=== PATIENT | male | born 1965 | race African-American/Black ===

== ENCOUNTER → 2017-08-20 12:34 | Outpatient (POV) | payer MEDICARE, SELFPAY ==
[2017-08-20 12:47] VITALS: BP 149/99; PULSE 74; RESP 20; TEMP 36.6; O2SAT 100
--- NOTE | 2017-08-20 12:55 | HMH.PMCON ---
Assessment and Plan (1) Degenerative joint disease (DJD) of lumbar spine Current visit: Yes Status: Chronic Qualifiers: Spinal osteoarthritis complication: with radiculopathy Qualified Code(s): M47.26 - Other spondylosis with radiculopathy, lumbar region Category: Medical Code(s): M47.816 - Spondylosis without myelopathy or radiculopathy, lumbar region (2) Postlaminectomy syndrome Current visit: Yes Status: Chronic Category: Medical Code(s): M96.1 - Postlaminectomy syndrome, not elsewhere classified - Assessment and plan all Dx Assessment and Plan for all problems:: The patient and I had a long discussion about therapies. Patient and I discussed that we would not be writing narcotic medications for him at this time. He is okay with this. We will start the patient on gabapentin 300 mg 1 tab p.o. 3 times daily. I encouraged him to start it at nighttime and slowly titrate as tolerated. We will also start the patient on Mobic 7.5 mg daily. I will give him tramadol 50 mg 1 tab p.o. 3 times daily as needed for pain. I will give him no refills on any of this. Patient is to sign a release of information to so that we can obtain his MRIs. I also gave the patient information on neuro stimulation and intrathecal therapies. Patient said he is open to try injective therapy again. We will discuss this at his next visit in 3 weeks. This note was dictated using voice recognition software and may contain errors or omissions HPI - Data of Consult Consult date: 08/20/17 Requesting Physician: Pamella Gracia APRN Primary Care Provider: Referral Provider, Family Provider: Internal Medicine - Consult Narrative Reason for consult: Back Pain History of present illness: Mr. Gupta is a 51 year old male who presents today for consultation in regards to his back and neck pain. Patient recently moved here from [place]. Patient was being seen by a neurosurgeon in [place]. Patient has had surgical interventions before. Patient also had steroid injections. Patient states that these helped but only for short amount of time. Patient has moved closer to be with family. Patient is interested in any therapy that would help his pain. Patient does not have an MRI with him today. He does however have a lumbar x-ray showing severe disc and facet degenerative changes and a grade 1 anterolisthesis of L4-L5. Patient has been on oxycodone in the past however patient has not ever tried any anti-inflammatories or gabapentin. Patient states he is interested in any medications that will help him function. Patient states his pain is an 8 out of 10 today. He states that it is in his neck and back he states that it runs down his right arm at times in his right leg. Patient states he has right leg numbness and tingling. Patient and I had a long discussion about medications, neuromodulation, intrathecal therapies. CC: Pamella Gracia APRN [facility] History I have reviewed the patient's past medical history: Yes Medical History: Reports:: Diabetes Mellitus Type 2, Hyperlipidemia, Hypertension, Palpitations Denies:: Internal Pacemaker Other Medical History: Reports: Arthritis Other Surgeries: Yes: Cardiac Catheterization. No: Pacemaker - *Social History Alcohol Intake: never Occupational Status: disabled Housing: house Household Members: significant other - Psychiatric History Expresses thoughts of harming self/others: None Suicide Plan Description: No Plan Review of Systems - Review of Systems ROS General: no recent weight change, no fever, no sleep disturbances Respiratory: no cough, no shortness of air, no recurring pulmonary infections Cardiovascular/Peripheral Vascular: No chest pain, No palpitations, no edema, no shortness of breath. Gastrointestinal: no incontinence, normal bowel movements reported Genitourinary: Hesitancy at times Musculoskeletal: Back pain, neck pain, right arm pain, righ
--- NOTE | 2017-08-20 13:50 | P.CONS_ITS ---
Assessment and Plan (1) Degenerative joint disease (DJD) of lumbar spine Current visit: Yes Status: Chronic Qualifiers: Spinal osteoarthritis complication: with radiculopathy Qualified Code(s): M47.26 - Other spondylosis with radiculopathy, lumbar region Category: Medical Code(s): M47.816 - Spondylosis without myelopathy or radiculopathy, lumbar region (2) Postlaminectomy syndrome Current visit: Yes Status: Chronic Category: Medical Code(s): M96.1 - Postlaminectomy syndrome, not elsewhere classified - Assessment and plan all Dx Assessment and Plan for all problems:: The patient and I had a long discussion about therapies. Patient and I discussed that we would not be writing narcotic medications for him at this time. He is okay with this. We will start the patient on gabapentin 300 mg 1 tab p.o. 3 times daily. I encouraged him to start it at nighttime and slowly titrate as tolerated. We will also start the patient on Mobic 7.5 mg daily. I will give him tramadol 50 mg 1 tab p.o. 3 times daily as needed for pain. I will give him no refills on any of this. Patient is to sign a release of information to so that we can obtain his MRIs. I also gave the patient information on neuro stimulation and intrathecal therapies. Patient said he is open to try injective therapy again. We will discuss this at his next visit in 3 weeks. This note was dictated using voice recognition software and may contain errors or omissions HPI - Data of Consult Consult date: 08/20/17 Requesting Physician: Pamella Gracia APRN Primary Care Provider: Referral Provider, Family Provider: Internal Medicine - Consult Narrative Reason for consult: Back Pain History of present illness: Mr. Gupta is a 51 year old male who presents today for consultation in regards to his back and neck pain. Patient recently moved here from [place]. Patient was being seen by a neurosurgeon in [place]. Patient has had surgical interventions before. Patient also had steroid injections. Patient states that these helped but only for short amount of time. Patient has moved closer to be with family. Patient is interested in any therapy that would help his pain. Patient does not have an MRI with him today. He does however have a lumbar x-ray showing severe disc and facet degenerative changes and a grade 1 anterolisthesis of L4-L5. Patient has been on oxycodone in the past however patient has not ever tried any anti- inflammatories or gabapentin. Patient states he is interested in any medications that will help him function. Patient states his pain is an 8 out of 10 today. He states that it is in his neck and back he states that it runs down his right arm at times in his right leg. Patient states he has right leg numbness and tingling. Patient and I had a long discussion about medications, neuromodulation, intrathecal therapies. CC: Pamella Gracia APRN [facility] History I have reviewed the patient's past medical history: Yes Medical History: Reports:: Diabetes Mellitus Type 2, Hyperlipidemia, Hypertension, Palpitations Denies:: Internal Pacemaker Other Medical History: Reports: Arthritis Other Surgeries: Yes: Cardiac Catheterization. No: Pacemaker - *Social History Alcohol Intake: never Occupational Status: disabled Housing: house Household Members: significant other - Psychiatric History Expresses thoughts of harming self/others: None Suicide Plan Description: No Plan Review of Systems - Review of Systems ROS General: no recent weight change, no fever, no sleep disturba
--- NOTE | 2017-08-20 16:14 | PC.PHONENOTE ---
called in Rx for Tramadol 50mg TID with no refills, mobic 7.5mg Daily with no refills and Gabapentin 300mg TID with no refills
== END ==
PROVIDERS: Visit Provider Clinical Nurse Specialist Family Health
DX: M96.1 Postlaminectomy syndrome, not elsewhere classified (principal); M47.26 Other spondylosis with radiculopathy, lumbar region
CPT/HCPCS: 99202

== ENCOUNTER → 2017-09-24 08:56 | Outpatient (POV) | payer MEDICARE, SELFPAY ==
[2017-09-24 09:15] VITALS: BP 133/88; PULSE 74; RESP 18; O2SAT 99; BMI 31.0
--- NOTE | 2017-09-24 12:48 | HMH.PAINSOAP ---
[facility] Pain Management SOAP Note Subjective:: Patient is a pleasant 51-year-old -Somali male who presents today for follow-up. At last visit patient was put on gabapentin. Patient had moved from [place] and was coming to our office to be medically managed with oxycodone. Patient states he is having a lot of anxiety recently. Patient also requesting Soma. Patient states he is taking this in the past with good relief. Patient has not seen anybody for his anxiety lately. I believe that he would benefit from a psychiatric consultation in regards to both biofeedback therapy and anxiety. I believe that this may help manage his pain long-term to. Patient is uninterested in intrathecal pain pump or neuro stimulation at this time. I asked the patient if he would do a urine drug screen today. Patient states that if he did he would be positive for marijuana. I told him we would be unable to prescribe anything additional at this time. ROS General: no recent weight change, no fever, no sleep disturbances Respiratory: no cough, no shortness of air, no recurring pulmonary infections Cardiovascular/Peripheral Vascular: No chest pain, No palpitations, no edema, no shortness of breath. Gastrointestinal: no incontinence, normal bowel movements reported Genitourinary: no incontinence Musculoskeletal: Back pain, bilateral leg pain Psychiatric: Anxious Neurological: [denies weakness in extremities], [denies balance issues] Objective:: Physical Exam General: Alert and oriented x3, no acute distress, pleasant and cooperative, [on room air] Lungs: Resps E/U, Symmetrical chest expansion, Eyes: PERRL Musculoskeletal: Flexion and extension of lumbar spine somewhat guarded secondary to pain, deep tendon reflexes normal, strength in upper and lower extremities [5/5], [abnormal gait noted] Neurological: speech clear, 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 Harkins for advice on pain care plan. I do not believe he is a narcotic candidate at this time. I will follow-up with him after his consultation. This note was dictated using voice recognition software and may contain errors or omissions
--- NOTE | 2017-09-24 12:54 | P.CONS_ITS ---
[facility] Pain Management SOAP Note Subjective:: Patient is a pleasant 51-year-old -Mexican male who presents today for follow-up. At last visit patient was put on gabapentin. Patient had moved from [place] and was coming to our office to be medically managed with oxycodone. Patient states he is having a lot of anxiety recently. Patient also requesting Soma. Patient states he is taking this in the past with good relief. Patient has not seen anybody for his anxiety lately. I believe that he would benefit from a psychiatric consultation in regards to both biofeedback therapy and anxiety. I believe that this may help manage his pain long-term to. Patient is uninterested in intrathecal pain pump or neuro stimulation at this time. I asked the patient if he would do a urine drug screen today. Patient states that if he did he would be positive for marijuana. I told him we would be unable to prescribe anything additional at this time. ROS General: no recent weight change, no fever, no sleep disturbances Respiratory: no cough, no shortness of air, no recurring pulmonary infections Cardiovascular/Peripheral Vascular: No chest pain, No palpitations, no edema, no shortness of breath. Gastrointestinal: no incontinence, normal bowel movements reported Genitourinary: no incontinence Musculoskeletal: Back pain, bilateral leg pain Psychiatric: Anxious Neurological: [denies weakness in extremities], [denies balance issues] Objective:: Physical Exam General: Alert and oriented x3, no acute distress, pleasant and cooperative, [ on room air] Lungs: Resps E/U, Symmetrical chest expansion, Eyes: PERRL Musculoskeletal: Flexion and extension of lumbar spine somewhat guarded secondary to pain, deep tendon reflexes normal, strength in upper and lower extremities [5/5], [abnormal gait noted] Neurological: speech clear, us marketing director equal, no gross sensory deficits Assessment:: Degenerative disc disease of lumbar spine with lumbar radiculopathy Plan:: We will send the patient to Dr. Harkins for advice on pain care plan. I do not believe he is a narcotic candidate at this time. I will follow-up with him after his consultation. This note was dictated using voice recognition software and may contain errors or omissions
== END ==
PROVIDERS: Visit Provider Clinical Nurse Specialist Family Health
DX: M54.16 Radiculopathy, lumbar region (principal)
CPT/HCPCS: 99212

== ENCOUNTER → 2021-06-16 13:31 | Outpatient (CLI) | payer MEDICARE, MEDICAID, SELFPAY ==
--- NOTE | 2021-06-16 13:35 | MR_ITS ---
FINAL REPORT CLINICAL HISTORY: CERVICAL DDD. PRIOR HX NECK SURGERY 2016. NUMBNESS 4-5TH DIGITS OF RT HAND. BILATERAL NECK PAIN. RT HAND PAIN. NO INJURY OR TRAUMA. FINDINGS: Multiplanar MR imaging of the cervical spine was performed without contrast. On the sagittal T2-weighted images, disc degeneration is seen at multiple levels. There is fusion from C3-C5. There is no evidence of fracture. The vertebral alignment is normal. The cervical spinal cord has an unremarkable appearance without evidence of mass, edema or syrinx. No significant canal stenosis is identified. The cervicomedullary junction is normal. C2-3: There is no significant canal stenosis or neural foraminal narrowing. C3-4: This level is fused. Uncovertebral osteophytes are present with moderate right neural foraminal narrowing. C4-5: This level is fused. There is no significant canal stenosis or neural foraminal narrowing. C5-6: Disc osteophyte complex is present with moderate left neural foraminal narrowing. C6-7: Disc osteophyte complex is present with mild bilateral neural foraminal narrowing. C7-T1: Uncovertebral osteophytes are present with mild bilateral neural foraminal narrowing. IMPRESSION: Multilevel degenerative and postoperative change as detailed above. Reviewed, Interpreted and Dictated by Dago Padgett III, MD Transcribed by Betsy Zuniga Authenticated by Dago Padgett III, MD on 06/16/2021 03:35:51 PM [facility]
--- NOTE | 2021-06-16 14:39 | XR_ITS ---
FINAL REPORT CLINICAL HISTORY: HIP AND PELVIS PAIN FINDINGS: Left hip with pelvis. There is no acute fracture or dislocation. There are moderate degenerative changes bilaterally. There is chronic calcification along the left ischial tuberosity. There are no soft tissue abnormalities. IMPRESSION: Moderate degenerative change. Reviewed, Interpreted and Dictated by Dago Padgett III, MD Transcribed by Kingsley Mcpherson Authenticated by Dago Padgett III, MD on 06/16/2021 04:17:[address] [facility]
--- NOTE | 2021-06-16 14:45 | XR_ITS ---
FINAL REPORT CLINICAL HISTORY: FADY HIP PAIN FINDINGS: Right hip with pelvis. There is no acute fracture or dislocation. There are moderate degenerative changes bilaterally. There are no soft tissue abnormalities. IMPRESSION: Moderate degenerative change. Reviewed, Interpreted and Dictated by Dago Padgett III, MD Transcribed by Kingsley Mcpherson Authenticated by Dago Padgett III, MD on 06/16/2021 04:19:04 PM [facility]
== END ==
PROVIDERS: PCP Physician Assistant Medical; Visit Provider Anesthesiology
DX: M50.30 Other cervical disc degeneration, unspecified cervical region (principal); M25.552 Pain in left hip; M25.551 Pain in right hip; R10.2 Pelvic and perineal pain
CPT/HCPCS: 72141; 73502; 76376

== ENCOUNTER 2021-09-27 19:32 | Observation (INO) | payer MEDICARE, MEDICAID, SELFPAY ==
[2021-09-27 19:31] VITALS: BP 125/71; PULSE 86; RESP 18; TEMP 36.7; O2SAT 98; BMI 26.6
--- NOTE | 2021-09-27 19:41 | XR_ITS ---
PROCEDURE INFORMATION: Exam: XR Chest Exam date and time: 09/27/2021 7:47 PM Age: 55 years old Clinical indication: Pain; Chest pressure; Additional info: Cp TECHNIQUE: Imaging protocol: XR of the chest. Views: 1 view. COMPARISON: MR CERVICAL SPINE WO CON 06/16/2021 1:56 PM FINDINGS: Lungs: Unremarkable. No consolidation. Pleural spaces: Unremarkable. No pleural effusion. No pneumothorax. Heart/Mediastinum: Unremarkable. No cardiomegaly. Bones/joints: Unremarkable. IMPRESSION: No acute findings.
--- NOTE | 2021-09-27 19:41 | HMH.EDCP ---
ED Disposition Condition on Discharge: Good - Critical Care Critical Care Time: No <Codey Soto - Last Filed: 09/27/21 19:41> <Nicolas Garcia - Last Filed: 09/27/21 21:28> Clinical Impression: Tobacco use Chest pain Qualifiers: Chest pain type: unspecified Qualified Code(s): R07.9 - Chest pain, unspecified Diabetes mellitus Qualifiers: Diabetes mellitus type: type 2 Diabetes mellitus manager terminal insulin use: unspecified manager terminal insulin use status Diabetes mellitus complication status: with other specified complication Qualified Code(s): E11.69 - Type 2 diabetes mellitus with other specified complication Disposition: Admitted as Observation Referrals: Umesh Valentine MD [Primary Care Provider] - Attestation: On 09/27/21, the high probability of a clinically significant, sudden or life threatening deterioration of the following system(s) required my full and direct attention, intervention and personal management. The time I documented below is in addition to time spent performing reported procedures but includes the following listed in this critical care notation. Medical Decision Making - Medical Records Medical records reviewed: Yes: I reviewed the patient's medical records. - Gaetano Inquiry Pt receiving controlled substance: No - ECG Data Tracing #1 I reviewed this ECG and interpreted as documented below: <Codey Soto - Last Filed: 09/27/21 19:41> - Lab Data Lab results reviewed: Yes: I reviewed the patient's lab results. Result diagrams: 09/27/21 19:26 09/27/21 19:26 - Radiology Data #1 Image(s): Chest Image Reviewed: Yes I have reviewed radiologist's interpretation Preliminary Findings: Normal/NAD <Nicolas Garcia - Last Filed: 09/27/21 21:28> Vital Signs: 09/27/21 19:31 09/27/21 20:00 Temperature 98.1 F Temperature Source Oral Pulse Rate 79 Pulse Rate [Apical] 86 Respiratory Rate 18 14 Blood Pressure 123/76 Blood Pressure [Right Arm] 125/71 Blood Pressure Mean 88 Blood Pressure Mean [Right Arm] 89 Blood Pressure Source [Right Arm] Automatic Cuff Blood Pressure Position [Right Arm] Sitting 02 Sat by Pulse Oximetry 98 97 Oxygen Delivery Method Room Air - Lab Data Lab Results 09/27/21 19:26: WBC 7.0, RBC 5.52, Hgb 13.4 L, Hct 39.1 L, MCV 70.8 L, MCH 24.2 L, MCHC 34.2, RDW 14.6, Plt Count 229, MPV 8.0, Neut % (Auto) 53.4, Lymph % (Auto) 34.8, [place] % (Auto) 8.2, Eos % (Auto) 1.7, Baso % (Auto) 1.8, Neut # (Auto) 3.7, Lymph # (Auto) 2.4, [place] # (Auto) 0.6, Eos # (Auto) 0.1, Baso # (Auto) 0.1 09/27/21 19:26: Sodium 134 L, Potassium 3.7, Chloride 104, Carbon Dioxide 20 L, Anion Gap 13.7, BUN 6 L, Creatinine 0.80, Estimated Creat Clear 119, Estimated GFR 100, Est GFR ( Amer) 121, Glucose 108 H, Calcium 9.8, Total Bilirubin 0.1 L, AST 27, ALT 30, Alkaline Phosphatase 110, Troponin I < 0.01, Total Protein 7.3, Albumin 4.2, Globulin 3.1, Albumin/Globulin Ratio 1.4 09/27/21 19:26: ESR 15 09/27/21 19:26: C-Reactive Protein 1.3 09/27/21 19:26: NT-Pro-B Natriuret Pep 24.9 Orders (Tests/Meds): ED MEDICATIONS Generic Name Dose Route Start Last Admin Trade Name Freq PRN Reason Stop Dose Admin Sodium Chloride 1,000 mls @ 999 mls/hr 09/27/21 20:15 09/27/21 20:04 Sod Chlor 0.9% 1000ml Bag IV 09/27/21 21:15 999 mls/hr .Q1H1M ALISHA Administration Discontinued Medications Generic Name Dose Route Start Last Admin Trade Name Freq PRN Reason Stop Dose Admin Nitroglycerin 1 gm 09/27/21 21:21 09/27/21 21:22 Nitroglycerin 1 Gm Ointment TD 09/27/21 21:22 1 gm ONCE ONE Administration ORDERS Category Date Time Status C-Reactive Protein Stat Lab 09/27/21 19:26 Results Procalcitonin Stat Lab 09/27/21 19:26 Results Rapid PCR Covid and Flu A/B Stat Lab 09/27/21 21:21 Ordered Troponin I Q3H Lab 09/27/21 22:45 Ordered Troponin I Q3H Lab 09/28/21 01:45 Ordered - ECG Data Tracing #1 ekg by me nsr, qrs nml,
[2021-09-27 19:47] LABS: Basophils # 0.1 K/mm3 (0-0.2); Basophils % 1.8 % (0.1-2.0); Eosinophils # 0.1 K/mm3 (0.0-0.4); Eosinophils % 1.7 % (0.1-12.0); Hematocrit 39.1 % (42.0-52.0); Hemoglobin 13.4 g/dL (14.1-18.0); Lymphocytes # 2.4 K/mm3 (0.7-4.5); Lymphocytes % 34.8 % (10-50); Mean Corpuscular HGB Conc 34.2 g/dL (31.8-35.4); Mean Corpuscular Hemoglobin 24.2 pg (27.0-31.2); Mean Corpuscular Volume 70.8 fl (80-94); Monocytes # 0.6 K/mm3 (0.1-1.0); Monocytes % 8.2 % (1.7-9.3); Neutrophils # 3.7 K/mm3 (1.8-7.8); Neutrophils % 53.4 % (37.0-80.0); Platelet Count 229 K/mm3 (142-424); Red Blood Count 5.52 M/mm3 (4.60-6.20); Red Cell Distribution Width 14.6 % (11.5-17.5)
[2021-09-27 19:54] LABS: Alanine Aminotransferase 30 U/L (12-78); Albumin Level 4.2 g/dl (3.5-5.0); Albumin/Globulin Ratio 1.4 (1.1-1.8); Alkaline Phosphatase 110 U/L (38-126); Anion Gap 13.7 mEq/L (5-15); Aspartate Amino Transferase 27 U/L (17-59); Blood Urea Nitrogen 6 mg/dl (9-20); Calcium 9.8 mg/dl (8.4-10.2); Carbon Dioxide 20 mmol/L (22.0-30.0); Chloride 104 mmol/L (98-107); Creatinine Clearance Estimated 119 mL/min (50-200); Estimated Glomerular Filt Rate 100 ml/min (>60); GFR (African American) 121 ML/MIN (>60); Globulin 3.1 g/dL (1.3-3.2); Glucose 108 mg/dl (74-100); Potassium 3.7 mmoL/L (3.5-5.1); Sodium 134 mmol/L (136-145); Total Protein,Serum 7.3 g/dl (6.3-8.2)
[2021-09-27 19:59] LABS: Bilirubin,Total 0.1 mg/dl (0.2-1.3)
[2021-09-27 20:00] VITALS: BP 123/76; PULSE 79; RESP 14; O2SAT 97
--- NOTE | 2021-09-27 20:01 | ECG_ITS ---
APPROVED REPORT Exam: Resting ECG HR:82 bpm ECG Measurements Heart Rate 82 AXES LA 155 P 26 QRSd 82 QRS 54 QT 331 T 40 QTc 370 Conclusion SINUS RHYTHM NORMAL ECG UNCONFIRMED REPORT Electronically signed by : Ganesh Bryant MD 09/30/2021 18:05:28
[2021-09-27 20:16] LABS: Troponin I < 0.01 ng/ml (0.00-0.034)
[2021-09-27 20:21] LABS: C-Reactive Protein 1.3 mg/L (0-4)
[2021-09-27 20:42] LABS: Erythrocyte Sedimentation Rate 15 mm/hr (0-20)
[2021-09-27 20:43] LABS: NT Pro Brain Natriuretic Pep. 24.9 pg/mL (0-125)
[2021-09-27 21:25] LABS: Coronavirus 19, PCR Not Detected (NotDetected); Influenza A, PCR Not Detected (NotDetected); Influenza B, PCR Not Detected (NotDetected)
--- NOTE | 2021-09-27 21:36 | PC.NURSE ---
patient admited observation to [address] to service of to Dr. Kinney with dx of Chest pain.
[2021-09-27 21:38] VITALS: BMI 25.4
[2021-09-27 21:40] LABS: Hemoglobin A1C 6.3 % (4.0-6.0)
[2021-09-27 21:43] VITALS: BP 120/71; PULSE 79; RESP 18; TEMP 36.8; O2SAT 99
--- NOTE | 2021-09-27 22:26 | PC.NURSE ---
PT ARRIVED TO FLOOR VIA W/C FROM ED W/STAFF @ [id number]
[2021-09-27 22:37] VITALS: PULSE 70
[2021-09-27 22:53] VITALS: BP 115/66; PULSE 73; RESP 18; TEMP 36.6; O2SAT 99
[2021-09-27 23:20] LABS: Troponin I < 0.01 ng/ml (0.00-0.034)
[2021-09-28] VITALS (17 sets, daily range): BP systolic 98–140; BP diastolic 54–91; PULSE 50–72; RESP 17–18; TEMP 36.4–37.1; O2SAT 90–99; BMI 25.4
--- NOTE | 2021-09-28 | IR_ITS ---
APPROVED REPORT Patient Location: Inpatient PROCEDURES Left heart catheterization Left ventriculogram Selective coronary angiogram INDICATION Unstable angina Informed consent was obtained prior to the procedure. COMPLICATIONS None Estimated Blood Loss: Less than 10 mls TECHNIQUE One percent lidocaine used to anesthetize the right anterior aspect of the wrist. The right radial artery was accessed via the Seldinger technique. A 6 [place] sheath was placed in the right radial artery. 2.5 mg of verapamil, 800 mcg of nitroglycerin, 1mg Lidocaine and 5000 U Heparin were given through the arterial sheath. The papa catheter was also used to perform left heart catheterization, left ventriculogram and selective coronary angiogram. At the end of the procedure the sheath was removed good hemostasis was achieved using Traclet band, patient was transferred to the postop holding area in stable condition. ANGIOGRAPHIC RESULTS The left main artery Normal The left anterior descending artery Is accompanied by EDWARDO II flow with no atherosclerotic disease The circumflex artery Dominant is accompanied by EDWARDO II flow with no atherosclerotic disease The right coronary artery Nondominant accompanied by EDWARDO II flow with no atherosclerotic disease The DALE ventriculogram reveals Normal 65% The left ventricular end-diastolic pressure 10 mmHg IMPRESSION Slow flow down all 3 coronary arteries consistent with endothelial dysfunction with no angiographic evidence of atherosclerotic heart disease Normal ejection fraction Normal left ventricular end-diastolic pressure PLAN 1. Medical management 2. Risk factor modification 3. Treatment of endothelial dysfunction Electronically signed by : Jonnathan Dasilva MD 09/28/2021 12:08:33
[2021-09-28 02:33] LABS: Troponin I < 0.01 ng/ml (0.00-0.034)
[2021-09-28 06:19] LABS: POC Glucose,Bedside 91 (70-110)
--- NOTE | 2021-09-28 06:25 | PC.NURSE ---
Pt is A/O x3. Pt rested well this shift. Reports no chest pain throughout the shift. Pt can ambulate independently in room. Remains on room air with O2 sats 94-99%.
--- NOTE | 2021-09-28 06:36 | PC.NURSE ---
Jael DAVILA NOTIFIED OF CONSULT
--- NOTE | 2021-09-28 07:19 | P.CONPHA_ITS ---
[facility] Pharmacy VTE Monitoring - Patient Demographics Admission date: 09/27/21 Report Date: 09/28/21 Time: 07:19 Allergies/Adverse Reactions: Patient Allergies No Known Allergies Allergy (Verified 09/27/21 19:40) Height: 1.75 m Weight: 77.746 kg Patient Problems: Current Active Problems Chest pain (Acute) Tobacco use (Acute) Diabetes mellitus (Acute) - VTE Risk Labs: VTE Related Lab Results Hgb 13.4 g/dL (14.1-18.0) L 09/27/21 19:26 Hct 39.1 % (42.0-52.0) L 09/27/21 19:26 Plt Count 229 K/mm3 (142-424) 09/27/21 19:26 BUN 6 mg/dl (9-20) L 09/27/21 19:26 Creatinine 0.80 mg/dl (0.66-1.25) 09/27/21 19:26 Estimated Creat Clear 119 mL/min (50-200) 09/27/21 19:26 VTE Score: 4 VTE Risk Level: Low Risk - Prophylaxis VTE Prophylaxis Ordered?: Yes Types of VTE Prophylaxis: TEDS Knee High Location of Applied Device: Bilateral Lower Extremeties
--- NOTE | 2021-09-28 08:00 | CA_ITS ---
APPROVED REPORT EXAM: Comprehensive 2D, Doppler, and color-flow Echocardiogram [employer] Operator: Ailyn Teixeira, ARABELLA, RVS Ht: 5 ft 9 in Wt: 180lbs BSA: 1.98 BP: 123/76 mmHg Indications: CP,HTN, Smoker, DM, HLD, Palpiations, Abn EKG 2D Dimensions IVSd 1.09 cm LVEF (Visual) 77.80 % PWd 1.03 cm LA Volume 31.50 mL LVDd 5.04 cm LA Volume Index 15.90 mL/m2 (M/F) 16-34 LVDs 2.69 cm Aortic Root 2.54 cm Left Atrium 2.76 cm LVOT 1.84 cm (M/F) 1.5-2.5 M-Mode Dimensions LA Diam 2.59 cm (1.9-4.0) Ao Diam 3.23 cm (2.0-3.7) EPSs 1.37 cm LV Diastology E Decel Time 260.00 (160-240 msec) E/A Ratio 0.79 MED E' 7.40 (< 7 cm/sec) MED A' 11.00 cm/s E'/MED E' Ratio 7.99 (>14) LAT E' 11.70 (<10 cm/sec) LAT A' 10.30 cm/s E/LAT E' Ratio 5.05 (>14) Aortic Valve LVOT Max 118.00 (70-110 cm/s) LVOT VTI 24.89 cm AoV Peak Cole. 139.00 (50-130 cm/s) AO Peak GR. 7.80 mmHg AO Mean GR. 3.90 (<5 mmHg) AO VTI 27.58 (18-25 cm) DALI (VTI) 2.40 (2.5-4.5 cm2) Mitral Valve MV A Velocity 75.00 (40-130 cm/s) E/A Ratio 0.79 MV Decel. Time 260.00 (160-240 ms) MV Mean Gr. 1.80 (<2mmHg) MV PHT 80.00 ms Pulmonary Valve PV Peak Velocity 73.00 (50-150 cm/s) Tricuspid Valve TR P. Velocity 201.00 cm/s RAP Estimate 10.00 mmHg RVSP 26.20 mmHg Left Ventricle Left atrium is mildly enlarged, left ventricle is normal size mild concentric left ventricular hypertrophy, estimated ejection fraction 55% with no regional wall motion abnormality, Doppler evidence of impaired LV relaxation seen without tissue Doppler evidence of raise left atrial pressure. Right Ventricle Right atrium and right ventricle are normal size and contractility. Aortic Valve Aortic valve is minimally thickened and fibrosed there is no aortic stenosis or aortic insufficiency. Mitral Valve Mitral valve grossly normal, there is trace mitral regurgitation. Tricuspid Valve Tricuspid valve is grossly normal, there is trace tricuspid regurgitation, calculated right ventricular systolic pressure is 26 mmHg. Pulmonic Valve Pulmonic valve is poorly visualized. Great Vessels Aortic root is normal size. Inferior vena cava normal size and normal inspiratory collapse. Pericardium No significant pericardial effusion. Conclusion 1. Mildly enlarged left atrium, normal left ventricular size, mild concentric left ventricular hypertrophy estimated ejection fraction 55% with no regional wall motion abnormality, Doppler evidence of impaired relaxation seen, tissue Doppler is not indicated raise left atrial pressure. 2. Trace mitral and tricuspid regurgitation, calculated right ventricular systolic pressure is 26 mmHg. 3. No significant pericardial effusion noted. 4. Inferior vena cava normal size with normal inspiratory collapse. Electronically signed by : Tirso Dhaliwal MD 09/28/2021 16:01:18
--- NOTE | 2021-09-28 08:22 | PC.NURSE ---
patient going down for heart cath, holding metformin today and for the next two days per vincenzo silverio.
--- NOTE | 2021-09-28 08:28 | HMH.CNCARD ---
History of Present Illness Consult date: 09/28/21 Requesting physician: Nicolas Garcia Consult reason: chest pain Chief complaint: chest pain Additional Medical History:: 1. Nonocclusive coronary artery disease by cardiac catheterization approximately 2011, [place], [place] 2. Continued tobacco use of 1 pack/day for 40 years 3. Diabetes mellitus, treated for many years A. Diabetic neuropathy 4. Hypertension 5. Hyperlipidemia 6. Chronic pain syndrome due to degenerative disc disease and prior surgery in the neck and degenerative disc disease in the lower back. Patient ambulates with a cane. He does have peripheral neuropathy. History of present illness: 55-year-old white male with multiple medical issues presented to the emergency department via EMS for onset of chest pain while arguing with his fianc?e. Patient relates 3 to 4 days history of intermittent chest discomfort which intensified last evening due to verbal argument. It included left arm discomfort and some shortness of breath. He was given sublingual nitroglycerin in the ER with improvement in symptoms. In the ER nitroglycerin paste was applied along with aspirin with resolution of symptoms and no recurrence overnight. Troponins have returned normal x3. EKG showed sinus rhythm with no acute ST segment changes. Preliminary echocardiogram this morning showed preserved ejection fraction. Cardiology consulted for evaluation and recommendations. Patient relates a cardiac cath approximately 10 years ago in [place] with notation of nonflow limiting coronary artery disease. He relates his last stress test approximately 6 years ago for which no further evaluation recommended. [facility] History Medical History: Reports:: Coronary Artery Disease, Diabetes Mellitus Type 2, Hyperlipidemia, Hypertension, Palpitations Denies:: Cancer, Diabetes Mellitus Type 1, Internal Pacemaker, MRSA *Have you ever received a pneumonia vaccine?: Yes *Have you received a flu vaccine this season?: No Other Medical History: Reports: Arthritis Other Surgeries: Yes: Cardiac Catheterization. No: Pacemaker Amputation: No Fractures: No - *Social History Smoking Status: Current every day smoker Tobacco Type: cigarettes # Packs/Day (cigarettes): 1 Alcohol Intake: never *Occupational Status:: unemployed Housing: house Household Members: significant other *Travel in the last 8 weeks: None Family Hx:: Cancer, Diabetes Meds Home Medications Medication Instructions Recorded Confirmed Type Amlodipine Besylate [Norvasc 10mg 10 mg PO DAILY 08/20/17 09/27/21 History tablet] Metformin HCl 1,000 mg PO BID 08/20/17 09/27/21 History Metoprolol Tartrate 25 mg PO DAILY 08/20/17 09/27/21 History ALPRAZolam [Xanax 0.5mg tab] 0.5 mg PO TID 09/27/21 09/27/21 History Atorvastatin Calcium [Lipitor 40mg 40 mg PO HS 09/27/21 09/27/21 History Tab] Gabapentin 600 mg PO DAILY 09/27/21 09/27/21 History Oxycodone HCl/Acetaminophen 0.5 each PO BID 09/27/21 09/27/21 History [Oxycodone-Acetaminophen 10-325] Allergies Allergy/AdvReac Type Severity Reaction Status Date / Time No Known Allergies Allergy Verified 09/27/21 19:40 Exam Vital signs and Labs for Last 24 Hours: Temp Pulse Resp BP Pulse Ox 98.7 F 70 17 107/59 L 93 L 09/28/21 07:47 09/28/21 08:00 09/28/21 07:47 09/28/21 07:47 09/28/21 07:47 Laboratory Results - last 24 hr 09/27/21 19:26: WBC 7.0, RBC 5.52, Hgb 13.4 L, Hct 39.1 L, MCV 70.8 L, MCH 24.2 L, MCHC 34.2, RDW 14.6, Plt Count 229, MPV 8.0, Neut % (Auto) 53.4, Lymph % (Auto) 34.8, [place] % (Auto) 8.2, Eos % (Auto) 1.7, Baso % (Auto) 1.8, Neut # (Auto) 3.7, Lymph # (Auto) 2.4, [place] # (Auto) 0.6, Eos # (Auto) 0.1, Baso # (Auto) 0.1 09/27/21 19:26: Sodium 134 L, Potassium 3.7, Chloride 104, Carbon Dioxide 20 L, Anion Gap 13.7, BUN 6 L, Creatinine 0.80, Estimated Creat Clear 119, Estimated GFR 100, Est GFR ( Amer) 121, Glucose 108 H, Calcium 9.8, To
[2021-09-28 08:33] LABS: Basophils # 0.1 K/mm3 (0-0.2); Basophils % 1.7 % (0.1-2.0); Eosinophils # 0.1 K/mm3 (0.0-0.4); Eosinophils % 2.7 % (0.1-12.0); Hematocrit 37.1 % (42.0-52.0); Hemoglobin 12.4 g/dL (14.1-18.0); Lymphocytes # 2.2 K/mm3 (0.7-4.5); Lymphocytes % 40.5 % (10-50); Mean Corpuscular HGB Conc 33.4 g/dL (31.8-35.4); Mean Corpuscular Hemoglobin 24.1 pg (27.0-31.2); Mean Corpuscular Volume 72.3 fl (80-94); Mean Platelet Volume 8.5 fl (7.4-10.4); Monocytes # 0.6 K/mm3 (0.1-1.0); Monocytes % 10.7 % (1.7-9.3); Neutrophils # 2.4 K/mm3 (1.8-7.8); Neutrophils % 44.5 % (37.0-80.0); Platelet Count 230 K/mm3 (142-424); Red Blood Count 5.14 M/mm3 (4.60-6.20); Red Cell Distribution Width 14.7 % (11.5-17.5); White Blood Count 5.3 K/mm3 (4.8-10.8)
[2021-09-28 08:38] LABS: Chloride 107 mmol/L (98-107); Potassium 4.1 mmoL/L (3.5-5.1); Sodium 137 mmol/L (136-145)
[2021-09-28 08:41] LABS: Anion Gap 7.1 mEq/L (5-15); Blood Urea Nitrogen 4 mg/dl (9-20); Carbon Dioxide 27 mmol/L (22.0-30.0); Cholesterol 81 mg/dl (140-200); Creatinine Clearance Estimated 113 mL/min (50-200); Estimated Glomerular Filt Rate 100 ml/min (>60); GFR (African American) 121 ML/MIN (>60); Glucose 102 mg/dl (74-100); Triglycerides 66 mg/dl (30-150); VLDL Cholesterol 13 mg/dL (0-40)
[2021-09-28 08:42] LABS: Chol/HDL Ratio 2.4 (1-3.5); HDL Cholesterol 34 mg/dl (40-60); Magnesium 1.6 mg/dl (1.6-2.3)
[2021-09-28 08:53] LABS: Direct LDL Cholesterol 30.01 mg/dL (100-129)
--- NOTE | 2021-09-28 11:05 | PC.NURSE ---
Richard from [facility] here to take pt down for procedure
[2021-09-28 11:07] LABS: POC Glucose,Bedside 113 (70-110)
--- NOTE | 2021-09-28 11:35 | HMH.PHAINT ---
MEDICATION RECONCILIATION COMPLETED ON PATIENT USING EXTERNAL FILL HISTORY FROM PHARMACY. -EELNA JORDAN, YUDELKAD
--- NOTE | 2021-09-28 12:52 | HMH.HPDC ---
General - General Admission date:: 09/27/21 Discharge date: 09/28/21 *Admission Date: 09/27/21 *Chief complaint: Chest Pain *History of present illness: 55-year-old white male with multiple medical issues presented to the emergency department via EMS for onset of chest pain while arguing with his fianc?e. Patient relates 3 to 4 days history of intermittent chest discomfort which intensified last evening due to verbal argument. It included left arm discomfort and some shortness of breath. He was given sublingual nitroglycerin in the ER with improvement in symptoms. In the ER nitroglycerin paste was applied along with aspirin with resolution of symptoms and no recurrence overnight. Troponins have returned normal x3. EKG showed sinus rhythm with no acute ST segment changes. Preliminary echocardiogram this morning showed preserved ejection fraction. Cardiology consulted for evaluation and recommendations. Patient relates a cardiac cath approximately 10 years ago in [place] with notation of nonflow limiting coronary artery disease. He relates his last stress test approximately 6 years ago for which no further evaluation recommended (Per Armani PIERRE). [facility] History I have reviewed the patient's past medical history: Yes Medical History: Reports:: Coronary Artery Disease, Diabetes Mellitus Type 2, Hyperlipidemia, Hypertension, Palpitations Denies:: Cancer, Diabetes Mellitus Type 1, Internal Pacemaker, MRSA *Have you ever received a pneumonia vaccine?: Yes *Have you received a flu vaccine this season?: No Other Medical History: Reports: Arthritis Other Surgeries: Yes: Cardiac Catheterization. No: Pacemaker Amputation: No Fractures: No - *Social History Smoking Status: Current every day smoker Tobacco Type: cigarettes # Packs/Day (cigarettes): 1 Alcohol Intake: never *Occupational Status:: unemployed Housing: house Household Members: significant other *Travel in the last 8 weeks: None Family Hx:: Cancer, Diabetes Review of Systems - Review of Systems Review of systems:: unable to obtain - Constitutional Denies fatigue, Denies fever(s) - Eyes Denies blurry vision, Denies double vision - ENT Denies dizziness, Denies difficulty swallowing - *Cardiovascular Reports chest pain, Reports chest pain at rest - *Respiratory Reports shortness of breath, Reports shortness of breath with activity - *Gastrointestinal Denies abdominal pain, Denies change in bowel habits - *Musculoskeletal Denies joint pain, Denies joint swelling - *Neurologic Reports tingling, Denies localized weakness - Endocrine Denies cold intolerance, Denies increased thirst - Hematologic/Lymphatic Denies easy bleeding, Denies easy bruising - Allergic/Immunologic Denies GI upset with certain foods, Denies tongue swelling Exam Vital signs and Labs for Last 24 Hours: Temp Pulse Resp BP Pulse Ox 98.7 F 55 L 18 118/64 91 L 09/28/21 07:47 09/28/21 12:25 09/28/21 12:25 09/28/21 12:25 09/28/21 12:25 Laboratory Results - last 24 hr 09/27/21 19:26: WBC 7.0, RBC 5.52, Hgb 13.4 L, Hct 39.1 L, MCV 70.8 L, MCH 24.2 L, MCHC 34.2, RDW 14.6, Plt Count 229, MPV 8.0, Neut % (Auto) 53.4, Lymph % (Auto) 34.8, [place] % (Auto) 8.2, Eos % (Auto) 1.7, Baso % (Auto) 1.8, Neut # (Auto) 3.7, Lymph # (Auto) 2.4, [place] # (Auto) 0.6, Eos # (Auto) 0.1, Baso # (Auto) 0.1 09/27/21 19:26: Sodium 134 L, Potassium 3.7, Chloride 104, Carbon Dioxide 20 L, Anion Gap 13.7, BUN 6 L, Creatinine 0.80, Estimated Creat Clear 119, Estimated GFR 100, Est GFR ( Amer) 121, Glucose 108 H, Calcium 9.8, Total Bilirubin 0.1 L, AST 27, ALT 30, Alkaline Phosphatase 110, Troponin I < 0.01, Total Protein 7.3, Albumin 4.2, Globulin 3.1, Albumin/Globulin Ratio 1.4 09/27/21 19:26: ESR 15 09/27/21 19:26: C-Reactive Protein 1.3, Procalcitonin 0.050 09/27/21 19:26: NT-Pro-B Natriuret Pep 24.9 09/27/21 19:26: Hemoglobin A1c 6.3 H 09/27/21 21:22: SARS-CoV-2 (PCR) Not detected,
--- NOTE | 2021-09-28 13:47 | HMH.PHAINT ---
DISCHARGE MEDICATION COUNSELING PROVIDED. DISCUSSED THE FOLLOWING CHANGES: -STOP AMLODIPINE 5 MG DAILY AND START AMLODIPINE 10 MG DAILY -STOP METOPROLOL TARTRATE 50 MG BID AND START METOPROLOL SUCCINATE 25 MG DAILY -STOP ATORVASTATIN 20 MG HS AND START ATORVASTATIN 40 MG HS. -START RANOLAZINE 500 MG TWICE DAILY (FOR CHEST PAIN, WATCH FOR DIZZINESS, LIGHTHEADEDNESS, LOW BP WHEN STANDING, HEADACHE) PATIENT WAS ADVISED HE CAN FINISH THE CURRENT ATORVASTATIN AND AMLODIPINE TABLETS BUT TAKE TWO OF THE ATORVASTATIN 20 MG TABS AND TWO OF THE AMLODIPINE 5 MG TABS TO GET TO THE NEW DOSES BEFORE STARTING THE NEW PRESCRIPTIONS. WAS TOLD TO DISCARD THE METOPROLOL TARTRATE 50 MG TABS AND START THE METOPROLOL SUCCINATE 25 MG TABS. PATIENT ENDORSED NO QUESTIONS AT THIS TIME.
--- NOTE | 2021-09-30 11:25 | CARE MANAGER ---
Patient returned phone call from yesterday. 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 He states that he is working on getting the money for medication, but in the meantime has all but one medication at his house. He denies other questions or concerns at this time. ARJUN Ureña
== END 2021-09-28 16:03 | disposition home or self-care (01) ==
LOC: ER 21:24 → 2ND 23:34
PROVIDERS: Internal Medicine; Admitting Provider Emergency Medicine; Emergency Provider Emergency Medicine; PCP Family Medicine; Visit Provider Family Medicine
DX: I25.110 Atherosclerotic heart disease of native coronary artery with unstable angina pectoris (principal); I10 Essential (primary) hypertension; E11.9 Type 2 diabetes mellitus without complications; E78.5 Hyperlipidemia, unspecified; F17.210 Nicotine dependence, cigarettes, uncomplicated; Z79.84 Long term (current) use of oral hypoglycemic drugs; Z79.899 Other long term (current) drug therapy; Z20.822 Contact with and (suspected) exposure to COVID-19
CPT/HCPCS: G0378; 36415; 71045; 80048; 80053; 80061; 82962; 83036; 83735; 83880; 84145; 84484; 85025; 85651; 86140; 93005; 93306; 93458; 99152; 99285; C1725; C1769; C9803; J1644; Q9967; U0003; U0005

== ENCOUNTER 2022-06-14 01:27 | Emergency (ER) | payer MEDICARE, MEDICAID, SELFPAY ==
[2022-06-14] VITALS (10 sets, daily range): BP systolic 92–153; BP diastolic 72–88; PULSE 64–83; RESP 16–29; TEMP 36.7–36.8; O2SAT 96–99; BMI 24.3
--- NOTE | 2022-06-14 01:21 | ECG_ITS ---
APPROVED REPORT Exam: Resting ECG HR:72 bpm ECG Measurements Heart Rate 72 AXES WA 152 P 50 QRSd 89 QRS 61 QT 359 T 58 QTc 383 Conclusion SINUS RHYTHM Nl ECG UNCONFIRMED REPORT Electronically signed by : Ganesh Bryant MD 06/14/2022 20:20:24
--- NOTE | 2022-06-14 01:41 | XR_ITS ---
PROCEDURE INFORMATION: Exam: XR Chest Exam date and time: 06/14/2022 2:10 AM Age: 56 years old Clinical indication: Pain; Left-sided; Additional info: Chest pain TECHNIQUE: Imaging protocol: Radiologic exam of the chest. Views: 1 view. Total images: 1 COMPARISON: No relevant prior studies available. FINDINGS: Tubes, catheters and devices: EKG leads are present. Lungs: Unremarkable. No consolidation. No pulmonary vascular congestion or edema. Pleural spaces: Unremarkable. No pleural effusion. No pneumothorax. Heart/Mediastinum: Unremarkable. No cardiomegaly. No mediastinal widening or hilar enlargement. Bones/joints: Mild degenerative changes lower thoracic spine. IMPRESSION: No radiographically acute cardiopulmonary process.
--- NOTE | 2022-06-14 01:42 | PC.NURSE ---
ivan yung at
--- NOTE | 2022-06-14 01:44 | HMH.EDCP ---
Discharge Plan Disposition Patient Disposition: Home, Self-Care Prescriptions Prescriptions: No Action metformin 1,000 MG tablet 1,000 mg PO BID alprazolam 0.5 MG tablet 0.5 mg PO TID oxycodone 5 MG tablet 5 mg PO BID Label Comments: TAKE 1 TABLET BY MOUTH EVERY 12 HOURS sildenafil 100 MG tablet 50 - 100 mg PO NEEDED PRN (Reason: ERECTILE DYSFUNCTION) metoprolol tartrate 50 mg tablet 50 mg PO BID atorvastatin 40 mg tablet 20 mg PO HS amlodipine 10 mg tablet 10 mg PO DAILY aspirin 81 mg tablet,chewable 81 mg PO DAILY ranolazine 500 mg tablet extended release 12 hr 500 mg PO BID Referrals Follow up/Referrals: Umesh Valentine MD [Primary Care Provider] - See instructions Clinical Impressions Clinical Impression: Chest pain Instructions Patient Instructions: DI for Atypical Chest Pain Discharge ED Provider: Jose (ED)Nciolas Chest Pain HPI General Chief Complaint: Chest Pain Stated Complaint: chest pain Time Seen by Provider: 06/14/22 01:44 Mode of Arrival: EMS Source of Information: Patient, EMS and Medical Record Limitations: No Limitations Description of Symptoms (Recalled from ER Triage Doc. by RN): Pt reports chest pain that started early sunday, states pain has goten worse t/o the day. Pt reports after second nitro given per ems pain has improved. Pt reports he has been under alot of stress, states has been crying alot today. Pt reports he doubled up on his xanax on Sunday r/t regular dose wasn't helping. Pt reports has been out of xanax all day today. History of Present Illness HPI narrative: lt sided chest pain over the last few days - worse this am - some relief with ems nitro- does report stress complaint: chest pain Onset (ago): day(s) Duration: intermittent Activity at onset: during rest Pain location: left chest Severity: similar to previous episodes Quality: sharp Relieving factors: nitroglycerin Risk Factors for CAD: Hypertension, Family Hx of CAD, Diabetes and Smoking Treatments prior to or on arrival for Cardiac Chest Pain: aspirin and nitroglycerin EMILY Score for Non-Stemi Age of Patient: 50-59 years old Heart Rate: 70-89 bpm Systolic Blood Pressure: 140-159 mmHg Serum Creatinine: 0.80-1.19 mg/dl CHF [place] Class: I-No CHF Other Risk Factors: None Non-Stemi Risk Score: 81 Risk Stratification: 1-108 = Low Risk Related Data Prior Cardiac Testing/Procedures: Cardiac Angiogram Home Medications Medication Instructions Recorded Confirmed metformin 1,000 mg tablet 1,000 mg PO BID Diabetes 08/20/17 06/14/22 alprazolam 0.5 mg tablet 0.5 mg PO TID Anxiety 09/27/21 06/14/22 oxycodone 5 mg tablet 5 mg PO BID Pain 09/28/21 06/14/22 sildenafil 100 mg tablet 50 - 100 mg PO NEEDED PRN 09/28/21 10/25/21 ERECTILE DYSFUNCTION amlodipine 10 mg tablet 10 mg PO DAILY blood pressure 06/14/22 06/14/22 aspirin 81 mg chewable tablet 81 mg PO DAILY heart health 06/14/22 06/14/22 atorvastatin 40 mg tablet 20 mg PO HS Cholesterol 06/14/22 06/14/22 metoprolol tartrate 50 mg tablet 50 mg PO BID blood pressure 06/14/22 06/14/22 ranolazine 500 mg tablet,extended 500 mg PO BID Chest pain 06/14/22 06/14/22 release,12 hr Allergies Allergy/AdvReac Type Severity Reaction Status Date / Time DONALD Inhibitors AdvReac cough Verified 10/25/21 13:42 hydrocodone AdvReac vertigo Verified 10/25/21 13:42 PFSH PFS Disclaimer: The information contained in this section may have been updated after the patient was seen, as this information can be updated by other users. Social History Smoking Status: Never smoker alcohol intake: never current occupational status: unemployed Travel in the last 8 weeks: Inside the [place] household members: significant other housing: house caffeine: Yes ROS Obtained: Yes All systems reviewed & no additional complaints except as documented Physical Exam General General appear
[2022-06-14 01:49] LABS: Basophils # 0.1 K/mm3 (0-0.2); Basophils % 0.9 % (0.1-2.0); Chloride 93 mmol/L (98-107); Eosinophils # 0.1 K/mm3 (0.0-0.4); Eosinophils % 1.1 % (0.1-12.0); Hematocrit 40.2 % (42.0-52.0); Hemoglobin 13.4 g/dL (14.1-18.0); Lymphocytes # 2.5 K/mm3 (0.7-4.5); Lymphocytes % 26.7 % (10-50); Mean Corpuscular HGB Conc 33.3 g/dL (31.8-35.4); Mean Corpuscular Hemoglobin 23.7 pg (27.0-31.2); Mean Corpuscular Volume 71.4 fl (80-94); Mean Platelet Volume 8.2 fl (7.4-10.4); Monocytes # 0.9 K/mm3 (0.1-1.0); Monocytes % 9.8 % (1.7-9.3); Neutrophils # 5.7 K/mm3 (1.8-7.8); Neutrophils % 61.4 % (37.0-80.0); Platelet Count 213 K/mm3 (142-424); Red Blood Count 5.63 M/mm3 (4.60-6.20); Red Cell Distribution Width 14.7 % (11.5-17.5); Sodium 128 mmol/L (136-145); White Blood Count 9.3 K/mm3 (4.8-10.8)
[2022-06-14 01:50] LABS: Potassium 3.6 mmoL/L (3.5-5.1)
[2022-06-14 01:52] LABS: Blood Urea Nitrogen 4 mg/dl (9-20); Creatinine Clearance Estimated 105 mL/min (50-200); Estimated Glomerular Filt Rate 100 ml/min (>60); GFR (African American) 121 ML/MIN (>60)
[2022-06-14 01:53] LABS: Anion Gap 14.6 mEq/L (5-15); Calcium 9.3 mg/dl (8.4-10.2); Carbon Dioxide 24 mmol/L (22.0-30.0); Glucose 120 mg/dl (74-100)
--- NOTE | 2022-06-14 01:56 | PC.NURSE ---
rad at bs
[2022-06-14 02:20] LABS: Troponin I < 0.01 ng/ml (0.00-0.034)
--- NOTE | 2022-06-14 03:26 | PC.NURSE ---
checked on pt at this time, pt states feeling some better, less anxious in appearance. Light turned off in room, pt hob laid down some for comfort per his request, pt given warm blanket, pt states is going to try and rest. Notified pt we will draw a second set of blood work for heart enzymes at 4:45am, per verbalized understanding. call light within reach
--- NOTE | 2022-06-14 05:00 | PC.NURSE ---
2nd troponin drawn and sent to lab at this time. Provided pt with update on approx. time for results. Pt up to restroom and back in bed, provided with drink and nixon crackers no other needs at this time.
[2022-06-14 05:21] LABS: Troponin I < 0.01 ng/ml (0.00-0.034)
--- NOTE | 2022-06-14 05:26 | PC.NURSE ---
notified er 2nd troponin level was back
--- NOTE | 2022-06-14 05:53 | PC.NURSE ---
pt reports he does not have a ride home, notified ER . will contact care management this morning when they get here to help arrange a ride home for pt.
--- NOTE | 2022-06-14 06:29 | PC.NURSE ---
Breakfast tray ordered for pt
--- NOTE | 2022-06-14 07:53 | PC.NURSE ---
checked on pt, finished his bed tray no other complaints at this time
--- NOTE | 2022-06-14 08:00 | PC.NURSE ---
called care management to arrange a ride home for pt spoke to deirdre in caremanagment she is calling [facility]
--- NOTE | 2022-06-14 08:02 | PC.NURSE ---
rounded on pt, no needs at this time
--- NOTE | 2022-06-14 08:14 | PC.NURSE ---
care management called back working on getting [facility] to pick pt up
--- NOTE | 2022-06-14 08:26 | CARE MANAGER ---
Contacted [facility] for transport home from ER. Patient has Medicaid but it is secondary to his Medicare and they state it will be $17. ER aware awaiting on [facility] to pick him up. ARJUN Ureña
== END 2022-06-14 09:26 | disposition home or self-care (01) ==
PROVIDERS: Emergency Provider Emergency Medicine; PCP Family Medicine
DX: R07.89 Other chest pain (principal)
CPT/HCPCS: 71045; 80048; 84484; 85025; 93005; 99285